=== PATIENT | male | born 1955 | race Caucasian/White ===

== ENCOUNTER 2017-11-04 10:16 | Emergency (ER) | payer MEDICARE, OTHER ==
[~2017-11-04] VITALS: Ht 170.2 cm; Wt 82.0 kg
[2017-11-04 10:25] VITALS: BP 169/102; PULSE 92; RESP 24; TEMP 98.1; O2SAT 97
[2017-11-04 10:40] VITALS: BP 164/94; PULSE 90; RESP 18; O2SAT 100
--- NOTE | 2017-11-04 11:08 | PD ---
HPI Chief Complaint: Respiratory Symptoms Time Seen by Provider: 10:56 Travel History International Travel<30 days: No Contact w/Intl Traveler<30days: No Traveled to known affect area: No History of Present Illness HPI Patient is a 62-year-old male presenting to the emergency department for evaluation of shortness of breath. Patient states it started a few days ago. He denies any chest pain, abdominal pain, fever, chills, headache, dizziness, weight gain. Patient has a history of COPD, he used an inhaler this morning with minimal improvement. He is not on any inhaled steroids or nebulizers routinely. He does have a history of CABG in 2008, states he had a stress test with subsequent cardiac cath in 2016 which she reports was perfect. Patient has no history of congestive heart failure. Symptom onset was gradual, symptoms are moderate in nature. Unknown aggravating factors, no alleviating factors. 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 PFSH Past Medical History Cardiac Catheterization: Yes High Cholesterol: Yes COPD: Yes Coronary Artery Disease: Yes Hypertension: Yes Past Surgical History Coronary Artery Bypass Graft: Yes Coronary Stent: Yes Other Surgery: Yes (LEFT ARM SX) Social History Alcohol Use: Yes Tobacco Use: No Substance Use: No Allergies-Medications (Allergen,Severity, Reaction): Coded Allergies: Penicillins (Verified Allergy, Severe, Swelling, 11/04/17) Review of Systems Except as stated in HPI: all other systems reviewed are Neg General / Constitutional: No: Fever HENT: No: Headaches, Lightheadedness Cardiovascular: No: Chest Pain or Discomfort Respiratory: Positive: Shortness of Breath, No: Cough Gastrointestinal: No: Nausea, Abdominal Pain Musculoskeletal: No: Myalgias Neurologic: No: Weakness, Dizziness Physical Exam Narrative GENERAL: Well-developed, well-nourished, alert elderly gentleman. Presenting in no acute distress. SKIN: Warm and dry. HEAD: Atraumatic. Normocephalic. EYES: Pupils equal and round. No scleral icterus. No injection or drainage. ENT: No nasal bleeding or discharge. Mucous membranes pink and moist. NECK: Trachea midline. No JVD. CARDIOVASCULAR: Regular rate and rhythm. RESPIRATORY: No accessory muscle use. Expiratory wheezes throughout, diminished lung sound in bases GASTROINTESTINAL: Abdomen soft, non-tender, nondistended. Hepatic and splenic margins not palpable. MUSCULOSKELETAL: Extremities without clubbing, cyanosis, or edema. No obvious deformities. NEUROLOGICAL: Awake and alert. No obvious cranial nerve deficits. Motor grossly within normal limits. Five out of 5 muscle strength in the arms and legs. Normal speech. PSYCHIATRIC: Appropriate mood and affect; insight and judgment normal. Data Data Last Documented VS Vital Signs Date Time Temp Pulse Resp B/P (MAP) Pulse Ox O2 Delivery O2 Flow Rate FiO2 11/04/17 12:38 98 Nasal Cannula 3.00 11/04/17 12:02 11/04/17 10:40 90 18 11/04/17 10:25 98.1 Orders Orders Complete Blood Count With Diff (11/04/17 11:03) Comprehensive Metabolic Panel (11/04/17 11:03) B-Type Natriuretic Peptide (11/04/17 11:03) Magnesium (Mg) (11/04/17 11:03) Ckmb (Isoenzyme) Profile (11/04/17 11:03) Troponin I (11/04/17 11:03) Iv Access Insert/Monitor (11/04/17 11:03) Electrocardiogram (11/04/17 11:03) Ecg Monitoring (11/04/17 11:03) Oximetry (11/04/17 11:03) Oxygen Administration (11/04/17 11:03) Chest, Single Ap (11/04/17 11:03) Sodium Chloride 0.9% Flush (Ns Flush) (11/04/17 11:15) Methylprednisolone So Succ Inj (Solumedr (11/04/17 11:15) Albuterol-Ipratropium Neb (Duoneb Neb) (11/04/17 11:15) Budesonide Neb (Pulmicort Respule Neb) (11/04/17 11:15) CKMB (11/04/17 11:09) CKMB% (11/04/17 11:09) Ed Discharge Order (11/04/17 13:23) Labs Laboratory Tests Test 11/04/17 11:09 White Blood Count 6.3 TH/MM3 Red Blood Count 4.53 MIL/MM3 Hemoglobin 9.9 GM/DL Hematocrit 32.6 % Mean Corpuscular Volume 72.0 FL Mean Corpuscular Hemoglobin 21.9 PG Mean Corpuscular Hemoglobin Concent 30.5 % Red Cell Distribution Width 17.8 % Platelet Count 348 TH/MM3 Mean Platelet Volume 8.6 FL Neutrophils (%) (Auto) 59.4 % Lymphocytes (%) (Auto) 26.5 % Monocytes (%) (Auto) 8.4 % Eosinophils (%) (Auto) 5.2 % Basophils (%) (Auto) 0.5 % Neutrophils # (Auto) 3.8 TH/MM3 Lymphocytes # (Auto) 1.7 TH/MM3 Monocytes # (Auto) 0.5 TH/MM3 Eosinophils # (Auto) 0.3 TH/MM3 Basophils # (Auto) 0.0 TH/MM3 CBC Comment DIFF FINAL Differential Comment Blood Urea Nitrogen 16 MG/DL Creatinine 1.11 MG/DL Random Glucose 91 MG/DL Total Protein 7.5 GM/DL Albumin 3.7 GM/DL Calcium Level 9.2 MG/DL Magnesium Level 2.5 MG/DL Alkaline Phosphatase 94 U/L Aspartate Amino Transf (AST/SGOT) 31 U/L Alanine Aminotransferase (ALT/SGPT) 39 U/L Total Bilirubin 0.4 MG/DL Sodium Level 138 MEQ/L Potassium Level 4.7 MEQ/L Chloride Level 104 MEQ/L Carbon Dioxide Level 25.3 MEQ/L Anion Gap 9 MEQ/L Estimat Glomerular Filtration Rate 67 ML/MIN Total Creatine Kinase 164 U/L Creatine Kinase MB 3.5 NG/ML Troponin I 0.03 NG/ML B-Type Natriuretic Peptide 186 PG/ML MDM Medical Decision Making Medical Screen Exam Complete: Yes Emergency Medical Condition: Yes Interpretation(s) Vital Signs Date Time Temp Pulse Resp B/P (MAP) Pulse Ox O2 Delivery O2 Flow Rate FiO2 11/04/17 10:40 90 18 164/94 (117) 100 Nasal Cannula 3.00 11/04/17 10:25 98.1 92 24 169/102 (124) 97 Differential Diagnosis COPD versus CHF versus metabolic abnormality versus cardiac arrhythmia versus pneumonia versus bronchitis versus other Narrative Course Patient is a 62-year-old male presenting to the emergency department for evaluation of shortness of breath. Patient was well oxygenated on room air however he was placed on O2 at 3 L. His O2 sat is currently 100%. Labs and imaging ordered and pending. Patient was placed on telemetry monitoring continuous pulse oximetry. IV access was established. Duo nebs and Solu- Medrol ordered. Chest x-ray shows left basilar effusion and atelectasis. Chemistry is unremarkable, CBC with no leukocytosis. BNP is 186. Patient was reassessed after duo nebs and budesonide nebulizer treatments. Lung sounds have markedly improved, there were no wheezes noted on exam. Patient reports feeling better. At this point patient will be discharged home with a diagnosis of pneumonia. Patient will be given antibiotics as well as prescriptions for nebulizer machine and nebulizer treatments. He was encouraged to follow-up with a primary doctor. is at bedside who is a nurse, she is encouraged to bring him back to emergency department immediately for any new or worsening symptoms. Patient verbalized understanding of these instructions. Patient stable for discharge. Diagnosis Primary Impression: Pneumonia Qualified Codes: J18.1 - Lobar pneumonia, unspecified organism Additional Impression: COPD exacerbation Referrals: Primary Care Physician 3 days Patient Instructions: Bacterial Pneumonia (ED), COPD (Chronic Obstructive Pulmonary Disease) (ED), General Instructions, How to Use a Nebulizer (ED) Additional Instructions: Complete full course of antibiotics as prescribed Use nebulizer as needed and as directed for shortness of breath or wheezing Follow-up with your primary doctor Return to emergency department for any new or worsening symptoms as discussed Med/Other Pt SpecificInfo: Prescription(s) given Scripts Nebulizer/Adult Mask (Nebulizer/Adult Mask) 1 Kit Kit KIT .XX DIRECTED for Breathing Treatment, #1 0 Refills Prov: Carline Mendoza 11/04/17 Nebulizer (Nebulizer) 1 Mis Mis EA .XX DIRECTED for Breathing Treatment, #1 0 Refills Prov: Carline Mendoza 11/04/17 Albuterol Neb (Albuterol Neb) 2.5 Mg/3 Ml Neb 2.5 MG NEB Q4HR NEB Y for SHORTNESS OF BREATH, #60 NEBULE 0 Refills Prov: Carline Mendoza 11/04/17 Levofloxacin (Levaquin) 750 Mg Tablet 750 MG PO DAILY for Infection for 5 Days, #5 TAB 0 Refills Prov: Carline Mendoza 11/04/17 Disposition: 01 DISCHARGE HOME Condition: Stable Carline Mendoza Nov 04, 2017 11:08
[2017-11-04] MEDS ORDERED: RESP: BUDESONIDE 0.5 MG/2 ML NEB NEB ONE (11:15)
[2017-11-04] MEDS ORDERED: RESP: ALBUTEROL 2.5 MG/IPRATROPIUM 0.5 MG NEB (SCH) INH (11:15)
[2017-11-04] MEDS ORDERED: SODIUM CHLORIDE 0.9% FLUSH 10 ML FLUSH IVF PRN (11:15)
[2017-11-04] MEDS ORDERED: methylPREDNISolone SOD SUCC 125 MG/2 ML VIAL IV PUSH ONE (11:15)
[2017-11-04 11:22] LABS: AUTOMATED NEUTROPHIL # 3.8 TH/MM3 (1.8-7.7); BASOPHIL % 0.5 % (0.0-2.0); EOSINOPHIL # 0.3 TH/MM3 (0-0.4); EOSINOPHIL % 5.2 % (0.0-4.0); HEMATOCRIT 32.6 % (39.0-51.0); HEMOGLOBIN 9.9 GM/DL (13.0-17.0); LYMPH % 26.5 % (9.0-44.0); LYMPHOCYTE # 1.7 TH/MM3 (1.0-4.8); MEAN CORPUSCULAR HEMOGLOBIN 21.9 PG (27.0-34.0); MEAN CORPUSCULAR HGB CONC 30.5 % (32.0-36.0); MEAN PLATELET VOLUME 8.6 FL (7.0-11.0); MONO % 8.4 % (0.0-8.0); MONOCYTE # 0.5 TH/MM3 (0-0.9); NEUT % 59.4 % (16.0-70.0); PLATELET COUNT 348 TH/MM3 (150-450); RED BLOOD COUNT 4.53 MIL/MM3 (4.50-5.90); RED CELL DISTRIBUTION WIDTH 17.8 % (11.6-17.2); WHITE BLOOD COUNT 6.3 TH/MM3 (4.0-11.0)
[2017-11-04 11:41] LABS: ALBUMIN 3.7 GM/DL (3.4-5.0); AST (GOT) 31 U/L (15-37); BICARBONATE 25.3 MEQ/L (21.0-32.0); BLOOD UREA NITROGEN 16 MG/DL (7-18); CALCIUM 9.2 MG/DL (8.5-10.1); CHLORIDE 104 MEQ/L (98-107); CREATININE 1.11 MG/DL (0.60-1.30); GLOMERULAR FILTRATION RATE 67 ML/MIN (>89); GLUCOSE,RANDOM 91 MG/DL (74-106); MAGNESIUM 2.5 MG/DL (1.5-2.5); SODIUM (NA) 138 MEQ/L (136-145)
[2017-11-04 11:42] LABS: ALT (GPT) 39 U/L (12-78)
[2017-11-04 11:46] LABS: ALKALINE PHOSPHATASE 94 U/L (45-117); TOTAL BILIRUBIN ADULT 0.4 MG/DL (0.2-1.0); TOTAL PROTEIN 7.5 GM/DL (6.4-8.2); TROPONIN I 0.03 NG/ML (0.02-0.05)
--- NOTE | 2017-11-04 11:53 | RADRPT ---
EXAM DATE: 11/04/2017 11:49 AM EDT AGE/SEX: 62 years / Male INDICATIONS: Short of breath for 2 days. CLINICAL DATA: This is the patient's initial encounter. Patient reports that signs and symptoms have been present for 2 days and indicates a pain score of 0/10. MEDICAL/SURGICAL HISTORY: Chronic obstructive pulmonary disease. CABG. COMPARISON: No prior exams available for comparison. FINDINGS: The patient is post median sternotomy. The heart is enlarged. There is a left basilar effusion atelec tatic changes. The right lung is clear. The visualized bony structures demonstrate degenerative sebastian es in the left shoulder but are otherwise intact. CONCLUSION: Left basilar effusion and atelectasis. Electronically signed by: Abhi Omer MD 11/04/2017 11:51 AM EDT
[2017-11-04 12:02] VITALS: O2SAT 99
[2017-11-04 12:38] VITALS: O2SAT 98
[2017-11-04] MEDS ORDERED: ALBU0.08 NEB (13:29)
[2017-11-04] MEDS ORDERED: LEVA750T9 PO (13:29)
[2017-11-04] MEDS ORDERED: NEBULIZER1 MI1 (13:29)
[2017-11-04] MEDS ORDERED: NEBULIZER/ADULT1 KIT (13:29)
--- NOTE | 2017-11-04 13:40 | PD ---
Physical Exam Date Seen by Provider: Nov 04, 2017 Narrative This patient presents with cough and shortness of breath. He has been treated with nebulizer treatments prior to my evaluation of Data Data Last Documented VS Vital Signs Date Time Temp Pulse Resp B/P (MAP) Pulse Ox O2 Delivery O2 Flow Rate FiO2 11/04/17 12:38 98 Nasal Cannula 3.00 11/04/17 12:02 11/04/17 10:40 90 18 11/04/17 10:25 98.1 Orders Orders Complete Blood Count With Diff (11/04/17 11:03) Comprehensive Metabolic Panel (11/04/17 11:03) B-Type Natriuretic Peptide (11/04/17 11:03) Magnesium (Mg) (11/04/17 11:03) Ckmb (Isoenzyme) Profile (11/04/17 11:03) Troponin I (11/04/17 11:03) Iv Access Insert/Monitor (11/04/17 11:03) Electrocardiogram (11/04/17 11:03) Ecg Monitoring (11/04/17 11:03) Oximetry (11/04/17 11:03) Oxygen Administration (11/04/17 11:03) Chest, Single Ap (11/04/17 11:03) Sodium Chloride 0.9% Flush (Ns Flush) (11/04/17 11:15) Methylprednisolone So Succ Inj (Solumedr (11/04/17 11:15) Albuterol-Ipratropium Neb (Duoneb Neb) (11/04/17 11:15) Budesonide Neb (Pulmicort Respule Neb) (11/04/17 11:15) CKMB (11/04/17 11:09) CKMB% (11/04/17 11:09) Ed Discharge Order (11/04/17 13:23) Labs Laboratory Tests Test 11/04/17 11:09 White Blood Count 6.3 TH/MM3 Red Blood Count 4.53 MIL/MM3 Hemoglobin 9.9 GM/DL Hematocrit 32.6 % Mean Corpuscular Volume 72.0 FL Mean Corpuscular Hemoglobin 21.9 PG Mean Corpuscular Hemoglobin Concent 30.5 % Red Cell Distribution Width 17.8 % Platelet Count 348 TH/MM3 Mean Platelet Volume 8.6 FL Neutrophils (%) (Auto) 59.4 % Lymphocytes (%) (Auto) 26.5 % Monocytes (%) (Auto) 8.4 % Eosinophils (%) (Auto) 5.2 % Basophils (%) (Auto) 0.5 % Neutrophils # (Auto) 3.8 TH/MM3 Lymphocytes # (Auto) 1.7 TH/MM3 Monocytes # (Auto) 0.5 TH/MM3 Eosinophils # (Auto) 0.3 TH/MM3 Basophils # (Auto) 0.0 TH/MM3 CBC Comment DIFF FINAL Differential Comment Blood Urea Nitrogen 16 MG/DL Creatinine 1.11 MG/DL Random Glucose 91 MG/DL Total Protein 7.5 GM/DL Albumin 3.7 GM/DL Calcium Level 9.2 MG/DL Magnesium Level 2.5 MG/DL Alkaline Phosphatase 94 U/L Aspartate Amino Transf (AST/SGOT) 31 U/L Alanine Aminotransferase (ALT/SGPT) 39 U/L Total Bilirubin 0.4 MG/DL Sodium Level 138 MEQ/L Potassium Level 4.7 MEQ/L Chloride Level 104 MEQ/L Carbon Dioxide Level 25.3 MEQ/L Anion Gap 9 MEQ/L Estimat Glomerular Filtration Rate 67 ML/MIN Total Creatine Kinase 164 U/L Creatine Kinase MB 3.5 NG/ML Troponin I 0.03 NG/ML B-Type Natriuretic Peptide 186 PG/ML MDM Supervised Visit with CECILIO: Yes Narrative Course I, Dr. Barfield, have reviewed the advance practice practitioner's documentation and am in agreement, met with the patient face to face, made the diagnosis, and the medical decision making was done by me. *My assessment and Findings: Patient is awake and alert. He is not currently having any respiratory distress. His lungs have good air movement throughout. Please see Carilne Lopez NP's note for a more detailed H&P, final diagnosis and disposition Diagnosis Primary Impression: Pneumonia Qualified Codes: J18.1 - Lobar pneumonia, unspecified organism Additional Impression: COPD exacerbation Referrals: Primary Care Physician 3 days Patient Instructions: General Instructions, Albuterol (By breathing), Levofloxacin (By mouth), COPD (Chronic Obstructive Pulmonary Disease) (ED), How to Use a Nebulizer (ED), Bacterial Pneumonia (ED) Departure Forms: Tests/Procedures Additional Instruction: Complete full course of antibiotics as prescribed Use nebulizer as needed and as directed for shortness of breath or wheezing Follow-up with your primary doctor Return to emergency department for any new or worsening symptoms as discussed Scripts Nebulizer/Adult Mask (Nebulizer/Adult Mask) 1 Kit Kit KIT .XX DIRECTED for Breathing Treatment, #1 0 Refills Prov: Carline Mendoza 11/04/17 Nebulizer (Nebulizer) 1 Mis Mis EA .XX DIRECTED for Breathing Treatment, #1 0 Refills Prov: Carline Mendoza 11/04/17 Albuterol Neb (Albuterol Neb) 2.5 Mg/3 Ml Neb 2.5 MG NEB Q4HR NEB Y for SHORTNESS OF BREATH, #60 NEBULE 0 Refills Prov: Carline Mendoza 11/04/17 Levofloxacin (Levaquin) 750 Mg Tablet 750 MG PO DAILY for Infection for 5 Days, #5 TAB 0 Refills Prov: Carline Mendoza 11/04/17 Disposition: 01 DISCHARGE HOME Condition: Stable Subha Barfield MD Nov 04, 2017 13:40
--- NOTE | 2017-11-05 16:50 | EKG ---
Date Performed: 11/04/2017 Time Performed: 11:44:42 PTAGE: 62 years EKG: Sinus rhythm LEFT ATRIAL ENLARGEMENT INCOMPLETE RIGHT BUNDLE BRANCH BLOCK NONSPECIFIC T-WAVE ABNORMALITY ABNORMAL ECG NO PREVIOUS TRACING DOCTOR: Kaitlyn Zhang Interpretating Date/Time 11/05/2017 16:46:13
== END 2017-11-04 14:12 | disposition home or self-care (01) ==
LOC: NEPC 10:16
DX: J18.1 Lobar pneumonia, unspecified organism (principal); J44.1 Chronic obstructive pulmonary disease with (acute) exacerbation; R94.31 Abnormal electrocardiogram [ECG] [EKG]; E78.00 Pure hypercholesterolemia, unspecified; I25.10 Atherosclerotic heart disease of native coronary artery without angina pectoris; I10 Essential (primary) hypertension; Z88.0 Allergy status to penicillin; Z95.1 Presence of aortocoronary bypass graft
CPT/HCPCS: 71045; 80053; 82550; 82552; 83735; 83880; 84484; 85025; 93005; 94664; 96374; 99285; J2930; J7626